=== PATIENT | female | born 1995 | race Caucasian/White ===

== ENCOUNTER 2017-08-04 01:13 | Emergency (ER) | payer OTHER ==
[~2017-08-04] VITALS: Ht 157.5 cm; Wt 70.8 kg
[2017-08-04] MEDS ORDERED: ALBU4 PO (01:33)
[2017-08-04 03:19] LABS: BASOPHILS ABSOLUTE AUTO 0.03 K/mm3 (0.00-0.23); BASOPHILS PERCENT AUTO 0 % (0-2); EOSINOPHILS ABSOLUTE AUTO 0.04 K/mm3 (0.00-0.68); EOSINOPHILS PERCENT AUTO 0 % (0-6); Hematocrit 28.8 % (33.0-51.0); Hemoglobin 9.8 g/dL (11.5-16.0); IMMATURE GRAN PERCENT AUTO 1 % (0-1); LYMPHOCYTES ABSOLUTE AUTO 0.98 K/mm3 (0.84-5.20); LYMPHOCYTES PERCENT AUTO 6 % (21-46); MONOCYTES ABSOLUTE AUTO 1.43 K/mm3 (0.16-1.47); MONOCYTES PERCENT AUTO 8 % (4-13); Mean Corpuscular HGB 28.3 pg (26.0-34.0); Mean Corpuscular Volume 83 fL (80-100); Mean Platelet Volume 10.2 fL (9.1-12.4); NEUTROPHILS ABSOLUTE AUTO 15.31 K/mm3 (1.96-9.15); NEUTROPHILS PERCENT AUTO 86 % (41-73); Platelet Count 248 K/mm3 (150-400); RDW Coefficient Variation 16.2 % (11.7-14.2); RDW Standard Deviation 49.5 fL (35.1-46.3); Red Blood Cell Count 3.46 M/mm3 (3.80-5.20); White Blood Cell Count 17.89 K/mm3 (4.00-11.30)
[2017-08-04 03:40] LABS: Alanine Aminotransfer (ALT/SGP 15 U/L (12-78); Albumin, Blood 2.9 g/dL (3.4-5.0); Albumin/Globulin Ratio 0.7 (0.8-1.8); Alk Phos 44 U/L (50-136); Anion Gap 9 mmol/L (6-16); Aspartate Aminotrans (AST/SGOT 14 U/L (12-37); Bilirubin, Total 0.6 mg/dL (0.1-1.0); Blood Urea Nitrogen 8 mg/dL (8-24); Bun/Creatinine Ratio 14.6 (12.0-20.0); CO2, Blood 23 mmol/L (21-32); Calcium, Blood 8.1 mg/dL (8.5-10.1); Chloride, Blood 104 mmol/L (98-108); Creatinine, Blood 0.55 mg/dL (0.40-1.00); Glomerular Filtration Rate >60 (60-); Glucose, Blood 97 mg/dL (70-99); Potassium, Blood 3.2 mmol/L (3.5-5.5); Sodium, Blood 136 mmol/L (136-145); Total Protein, Blood 6.9 g/dL (6.4-8.2)
[2017-08-04 03:46] LABS: Source, Urine Clean Catch
[2017-08-04 03:52] LABS: Bilirubin, Urine Neg (Neg); Blood, Urine Neg (Neg); Glucose Qualitative, Urine Neg (Neg); Ketones, Urine Neg (Neg); Leukocyte Esterase, Urine 3+ (Neg); Nitrite, Urine Neg (Neg); Protein, Urine Neg (Neg); Specific Gravity, Urine 1.005 (1.003-1.022); Urobilinogen, Urine NORM (Normal)
[2017-08-04 03:56] LABS: Appearance, Urine Hazy (Clear); Color, Urine Pale Yellow (P-Yellow)
[2017-08-04 03:57] LABS: Amorphous Light (0-Heavy); Bacteria Few /hpf; Red Blood Cells, Urine Not Seen /hpf (0-2); Squamous Epithelial Cells Mod /hpf (Few)
[2017-08-04] MEDS ORDERED: CEFD300 PO (04:45)
[2017-08-04] MEDS ORDERED: Zofran4 MG PO (04:45)
== END 2017-08-04 05:34 | disposition home or self-care (01) ==
LOC: ER 01:13
PROVIDERS: Emergency Medicine
DX: O23.02 Infections of kidney in pregnancy, second trimester (principal); Z3A.16 16 weeks gestation of pregnancy
CPT/HCPCS: 76815; 80053; 81001; 85025; 87077; 87086; 87186; 96361; 96374; 99284; J0696; J7030